=== PATIENT | female | born 1950 | race Caucasian/White ===

== ENCOUNTER 2018-03-11 11:46 | Observation (INO) | payer OTHER ==
[~2018-03-11] VITALS: Ht 165.1 cm; Wt 80.7 kg
[~2018-03-11 11:46] MED LIST: ALPRAZOLAM; ASPIRIN EC325 M1; ASPIRIN81 MG PO; DURAGESIC1 EAC1 TD; HYDROCODONE-APA1 TA1 PO; KEFLEX500 MG PO; OXYCODON-ACETA1 EAC1 PO; PERCOCET 10-321 EACH PO; PHENERGAN 25 MG25 M1 PO; XANAX 0.25 MG0.25 MG; XANAX 1 MG TABLE1 MG PO; ZANTAC 7575 MG PO
[2018-03-11 11:50] VITALS: BP 173/90
[2018-03-11] MEDS ORDERED: ASPIRIN325 PO (11:54)
[2018-03-11 12:02] LABS: ABSOLUTE BASOPHILS 0.1 thou/uL (0.0-0.2); ABSOLUTE EOSINOPHILS 0.3 thou/uL (0.0-0.7); ABSOLUTE LYMPHOCYTES 4.1 thou/uL (0.8-5.3); ABSOLUTE MONOCYTES 0.5 thou/uL (0.0-1.2); ABSOLUTE NEUTROPHILS 4.4 thou/uL (1.6-8.1); BASOPHILS 1.2 %; EOSINOPHILS 3.5 %; HEMOGLOBIN 13.5 gm/dL (12.0-15.0); LYMPHOCYTES 43.6 %; MCH 28.2 pg (26.0-34.0); MCHC 33.8 g/dL (28.0-37.0); MCV 83.4 fL (80.0-100.0); MONOCYTES 4.9 %; NUCLEATED RBCS 0 /100WBC; PLATELET COUNT* 203 thou/uL (150-400); POLYS 46.8 %; RBC 4.79 mil/uL (4.20-5.00); RDW-CV 13.6 % (10.5-14.5); WBC 9.5 thou/uL (4.0-11.0)
[2018-03-11 12:10] LABS: ANION GAP 4 mmol/L (7-16); BUN 12 mg/dL (7-18); CALCIUM 8.6 mg/dL (8.5-10.1); CHLORIDE 103 mmol/L (98-107); CO2 31 mmol/L (21-32); CREATININE 0.8 mg/dL (0.6-1.3); GLUCOSE 111 mg/dL (70-99); POTASSIUM 3.5 mmol/L (3.5-5.1); SODIUM 138 mmol/L (136-145)
[2018-03-11 12:21] LABS: ALBUMIN 3.8 g/dL (3.4-5.0); ALKALINE PHOSPHATASE 110 U/L (46-116); LIPASE 130 U/L (73-393); NT-PRO BRAIN NAT PEPTIDE 55 pg/mL (<300); SGOT 18 U/L (15-37); SGPT 18 U/L (30-65); TOTAL BILIRUBIN 0.4 mg/dL (<0.1-1.0); TOTAL PROTEIN 8.1 g/dL (6.4-8.2); TROPONIN-I LEVEL <0.06 ng/mL (<0.06)
[2018-03-11 14:10] VITALS: BP 124/63
[2018-03-11 15:13] VITALS: BP 118/62
[2018-03-11 16:13] VITALS: BP 117/66
--- NOTE | 2018-03-11 16:34 | EKG ---
[place] [address] ELECTROCARDIOGRAM REPORT Name: GALINAELADIA Room: [address] ADM IN M.R.#: [id number] Admission: 03/11/18 Attend Phys: Kiet Welch Discharge: Date of : 50 Report #: [id number] THIS REPORT FOR: //name// [facility] ED Test Date: 2018-03-11 Test Time: 11:50:18 Pat Name: ELADIA MOJICA Department: Room: [facility] Gender: F [employer] Manager: KARLA : 1950 Requested By: Griffin Martin Order Number: [id number] MD: Antonio Contreras Measurements Intervals [place] Rate: 76 P: 18 DC: 156 QRS: -1 QRSD: 91 T: 50 QT: 406 QTc: 457 Interpretive Statements Sinus rhythm Compared to ECG 08/29/2015 19:29:23 No significant changes Electronically Signed On 03-11-2018 16:33:54 CDT by Antonio Contreras [email or web address] <ELECTRONICALLY SIGNED> By: Antonio Contreras MD, [facility] 03/11/18 1633 1150 1150 Antonio Contreras MD, FAC /EPI
[2018-03-11 19:40] LABS: CHOLESTEROL 226 mg/dL (<200); HDL CHOLESTEROL 24 mg/dL (>40); TC:HDL 9.4 Ratio (Not establshd); TRIGLYCERIDE 569 mg/dL (<150); VLDL 114 mg/dL (<40)
[2018-03-11 19:41] LABS: SERUM ASSESSMENT Slight Lipemia
[2018-03-11 21:30] VITALS: BP 140/66
[2018-03-12] VITALS: BP 152/65
[2018-03-12 04:00] VITALS: BP 124/65
[2018-03-12 08:30] VITALS: BP 115/75
--- NOTE | 2018-03-12 12:17 | CARDNUC ---
[place] [address] CARDIAC NUCLEAR IMAGING REPORT Name: GALINAELADIABHANU FINE Room: [address] IN [facility]#: [id number] Admission: 03/11/18 Attend Phys: Dewayne Perkins Discharge: Date of : 50 Date of Service: 03/12/18 1217 Report #: [id number] THIS REPORT FOR: //name// APPROVED REPORT Imaging Protocol: Rest Tc-99m/Stress Tc-99m 1 day Study performed: 03/11/2018 17:57:00 Indication: Chest pain Patient Location: Out-Patient Stress Tech: Rebeca Jenkins Stress Nurse: Maribell Mcmanus RN NM Tech:FRANSISCO Jackman Ht: 5 ft 5 in Wt: 178 lbs BSA: 1.88 m2 BMI: 29.61 Medical History Medical History: Angina, SOB, CAD Medications: NTG, ASA 325 MG. Allergies: ERYTHROMYCIN BASE, EGG, LATEX, HYDROXYZINE, DIET SODA Cardiac Risk Factors: Age, FHX of CAD, SOB Previous Cardiac Procedures: Myocardial infarction, PCI Exercise History: Sedentary Meds Held (24 hrs): NTG Resting Data Rest SPECT myocardial perfusion imaging was performed in supine position 30 minutes following the intravenous injection of 10.6 mCi of Tc-99m Sestamibi. Time of rest injection: 904 Date: 03/12/2018 Time of rest imagin The images were gated to evaluate regional wall motion and calculate left ventricular ejection fraction. Administration Route: IV Pharmacologic Stress Pharmacologic stress test was performed by injecting Regadenoson 0.4 mg IV push over 10-15 seconds immediately followed by the intravenous injection of 34.6 mCi of Tc-99m Sestamibi. Time of stress injection: 1035 Time of stress imagin Administration Route: IV Gated Stress SPECT was performed 40 [place] [address] CARDIAC NUCLEAR IMAGING REPORT Name: ELADIA MOJICA Room: [address] [place] [facility]#: [id number] Admission: 03/11/18 Attend Phys: Dewayne Perkins Discharge: Date of : 50 Date of Service: 03/12/18 1217 Report #: [id number] injection. The images were gated to evaluate regional wall motion and calculate left ventricular ejection fraction. Prone imaging was performed. Stress Test Details Stress Test: Pharmacologic stress testing performed using 0.4 mg of regadenoson per 5 mL given IV over 10 seconds. Reason for pharmacologic stress test: physical limitation. HR Max Heart Rate (APMHR): 153 bpm Resting HR: 74 bpm Target HR (85% APMHR): 130 bpm Max HR Achieved: 100 bpm % of APMHR: 65 Recovery HR: 81 bpm HR response to stress: Normal HR response to stress BP Resting BP: 134/88 mmHg Recovery BP: 156/88 mmHg BP response to stress: Normal blood pressure response to stress. ECG Resting ECG: Sinus Rhythm Stress ECG: Sinus Rhythm ST Change: Nondiagnostic resting ST abnormalities Recovery ST Change: None Clinical Reason for Termination: Completed protocol Stress Symptoms: None Exercise duration: 0 min 0 sec Exercise capacity: 1.00 METs Nurse Comments PATIENT TOLERATED TEST WELL, NO COMPLAINTS. Stress ECG Conclusion negative ecg Study Quality Study: Fair Artifact: Mild Increased GI uptake Lung Uptake: [place] [address] CARDIAC NUCLEAR IMAGING REPORT Name: ELADIA MOJICA RODY Room: [address] [place] [facility]#: [id number] Admission: 03/11/18 Attend Phys: Dewayne Perkins Discharge: Date of : 50 Date of Service: 03/12/18 1217 Report #: [id number] Study Data At rest, the left ventricular ejection fraction was 65%.. Post stress, the left ventricular ejection was 65%.. SSS: 6 SRS: 9 SDS: -3 TID = 0.90. Perfusion STRESS SPECT images show a small mild intensity inferior defect which is noted to be fixed when compared to the SPECT rest images. There is uniform uptake of tracer in all other segments. The prone set shows normalization of the inferior defect indicating it is likely artifact. No reversible defects are seen. Images were reviewed using [employer]. Wall Motion normal all segments Nuclear Conclusion ECG Findings: negative for ischemia Clinical Findings: negative for ischemia Nuclear Findings: negative for ischemia Exercise Capacity: normal Left Ventricular Function: normal Risk Study: low Negative perfusion nuclear stress test for ischemia. Normal LV function.The defect inferiorly is likely artifact. <Conclusion> negative ecg <ELECTRONICALLY SIGNED> By: Sy Casey MD, FACC 03/12/181216 16 16 Sy Casey MD, FACC /INF
[2018-03-12 12:30] VITALS: BP 129/61
[2018-03-12] MEDS ORDERED: LIDODERM1 EACH TRANSDERM (13:00)
[2018-03-12 13:01] VITALS: BP 129/61
[2018-03-12 13:09] LABS: GLYCOHEMOGLOBIN (HGB A1C) 5.7 % (4.8-5.6)
--- NOTE | 2018-03-12 13:57 | 2DMMODE ---
[place] [address] 2 D/M-MODE ECHOCARDIOGRAM Name: ELADIA MOJICA RODY Room: [address] Magalis Talavera#: [id number] Admission: 03/11/18 Attend Phys: Dewayne Perkins Discharge: Date of : 50 Date of Service: 03/12/18 1357 Report #: [id number] THIS REPORT FOR: //name// APPROVED REPORT Study performed: 03/12/2018 12:58:30 EXAM: Comprehensive 2D, Doppler, and color-flow Echocardiogram Patient Location: In-Patient Room #: [facility] Status: routine BSA: 1.88 HR: 72 bpm BP: 124/65 mmHg Rhythm: NSR Other Information Study Quality: Good Indications Chest Pain unstable angina 2D Dimensions LVEF(%): 69.27 (>50%) IVSd: 12.87 (7-11mm) LVOT Diam: 19.47 (18-24mm) LVDd: 40.71 mm PWd: 10.18 (7-11mm) Ascending Ao: 28.69 (22-36mm) LVDs: 25.04 (25-40mm) Aortic Root: 30.92 mm Muro's LVEF: 69.27 % Volumes Left Atrial Volume (Systole) LA ESV Index: 23.90 mL/m2 Aortic Valve AoV Peak Augie.: 1.11 m/s AO Peak Gr.: 4.95 mmHg LVOT Max P.01 mmHg AO Mean Gr.: 2.97 mmHg LVOT Mean P.59 mmHg LVOT Max V: 0.87 m/s AO V2 VTI: 23.80 cm LVOT Mean V: 0.59 m/s TED (VTI): 2.65 cm2 LVOT V1 VTI: 21.21 [place] [address] 2 D/M-MODE ECHOCARDIOGRAM Name: ELADIA MOJICA Room: [address] MKiranRKiran#: [id number] Admission: 03/11/18 Attend Phys: Dewayne Perkins Discharge: Date of : 50 Date of Service: 03/12/18 1357 Report #: [id number] E/A Ratio: 1.05 MV Decel. Time: 209.80 ms MV E Max Augie.: 0.86 m/s MV PHT: 60.84 ms MVA (PHT): 3.62 cm2 TDI E/Lateral E': 7.82 E/Medial E': 7.82 Medial E' Augie.: 0.11 m/s Lateral E' Augie.: 0.11 m/s Pulmonary Valve PV Peak Augie.: 0.88 m/s PV Peak Gr.: 3.08 mmHg Left Ventricle The left ventricle is normal size. There is normal LV segmental wall motion. There is normal left ventricular wall thickness. Left ventricular systolic function is normal. The left ventricular ejection fraction is within the normal range. LVEF is 60-65%. The left ventricular diastolic function is normal. Right Ventricle The right ventricle is normal size. The right ventricular systolic function is normal. Atria The left atrium size is normal. The right atrium size is normal. Aortic Valve Mild aortic valve sclerosis. No aortic regurgitation is present. There is no aortic valvular stenosis. Mitral Valve The mitral valve is normal in structure. Mild mitral regurgitation. No evidence of mitral valve stenosis. Tricuspid Valve The tricuspid valve is normal in structure. Trace tricuspid regurgitation. Pulmonic Valve The pulmonary valve is normal in structure. There is no pulmonic [place]vular [place] [address] 2 D/M-MODE ECHOCARDIOGRAM Name: ELADIA MOJICA Room: [address] Ilan#: [id number] Admission: 03/11/18 Attend Phys: Dewayne Perkins Discharge: Date of : 50 Date of Service: 03/12/18 1357 Report #: [id number] The aortic root is normal in size. IVC is normal in size and collapses with >50% inspiration Pericardium There is no pericardial effusion. <Conclusion> The left ventricle is normal size. There is normal left ventricular wall thickness. Left ventricular systolic function is normal. The left ventricular ejection fraction is within the normal range. LVEF is 60-65%. The right ventricle is normal size. The left atrium size is normal. Mild aortic valve sclerosis. No aortic regurgitation is present. There is no aortic valvular stenosis. The mitral valve is normal in structure. Mild mitral regurgitation. The tricuspid valve is normal in structure. IVC is normal in size and collapses with >50% inspiration There is no pericardial effusion. There is normal LV segmental wall motion. <ELECTRONICALLY SIGNED> By: Antonio Contreras MD, FACC 03/12/18 1357 135 135 Antonio Contreras MD, FACC /INF
== END 2018-03-12 14:48 | disposition home or self-care (01) ==
LOC: M.ERS 11:46 → M.TBA-ER 13:01 → M.2W 13:01
PROVIDERS: Emergency Medicine Emergency Medical Services; ADMIT Internal Medicine
DX: I20.0 Unstable angina (principal); R73.9 Hyperglycemia, unspecified; E78.5 Hyperlipidemia, unspecified; F31.9 Bipolar disorder, unspecified; F03.90 Unspecified dementia, unspecified severity, without behavioral disturbance, psychotic disturbance, mood disturbance, and anxiety; Z90.49 Acquired absence of other specified parts of digestive tract; Z86.73 Personal history of transient ischemic attack (TIA), and cerebral infarction without residual deficits